=== PATIENT | female | born 1980 | race Caucasian/White ===

== ENCOUNTER 2017-03-31 08:49 | Emergency (ER) | payer OTHER, BC ==
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
[2017-03-31] MEDS ORDERED: LEXAPRO5 MG PO (09:00)
== END 2017-03-31 15:29 | disposition home or self-care (01) ==
LOC: SED 08:49
DX: S12.101A Unspecified nondisplaced fracture of second cervical vertebra, initial encounter for closed fracture (principal); Z79.899 Other long term (current) drug therapy; V43.52XA Car driver injured in collision with other type car in traffic accident, initial encounter
CPT/HCPCS: 70150; 70450; 72125; 72141; 99284